=== PATIENT | male | born 1955 | race Caucasian/White ===

== ENCOUNTER 2017-01-18 22:10 | Emergency (ER) | payer MEDICAID ==
[~2017-01-18] VITALS: Ht 160 cm; Wt 72.0 kg
[2017-01-18 22:17] VITALS: BP 148/83
== END 2017-01-19 00:20 | disposition left against medical advice (07) ==
LOC: ER 22:10
DX: Z53.21 Procedure and treatment not carried out due to patient leaving prior to being seen by health care provider (principal)
CPT/HCPCS: A4565

== ENCOUNTER 2017-07-14 21:10 | Inpatient (IN) | payer SELFPAY ==
[~2017-07-14] VITALS: Ht 165.1 cm; Wt 73.4 kg
[2017-07-14] MEDS ORDERED: ENALAPRIL 2.5MG/2ML VIAL 2ML IV STA (23:01)
[2017-07-14] MEDS ORDERED: ASPIRIN 325MG TABLET PO ONE (23:15)
[2017-07-14 23:29] LABS: BASOPHILS % 0.9 % (0.0-2.0); EOSINOPHILS % 1.8 % (0.0-5.0); HEMATOCRIT. 39.5 % (42.0-52.0); HEMOGLOBIN. 13.9 g/dL (14.0-18.0); LYMPHOCYTES % 29.9 % (20.0-50.0); MEAN CORPUSCULAR HEMOGLOBIN 30.7 pg (28.0-32.0); MEAN CORPUSCULAR VOLUME 87.5 fL (80.0-94.0); MEAN PLATELET VOLUME 6.6 fl (7.4-10.4); MONOCYTES % 5.8 % (2.0-8.0); NEUTROPHILS % 61.6 % (40.0-76.0); PLATELET 381 x1000/uL (130-400); RED BLOOD CELL COUNT 4.52 mill/uL (4.7-6.1); RED CELL DISTRIBUTION WIDTH 12.6 % (11.6-14.6)
[2017-07-14 23:43] LABS: CARBON DIOXIDE 26 mEq/L (21-32); CHLORIDE 105 mEq/L (98-107); TROPONIN I < 0.02 ng/mL (0.00-0.04)
[2017-07-15 03:52] VITALS: BP 157/78
[2017-07-15 04:00] VITALS: BP 157/78
[2017-07-15 08:00] VITALS: BP 133/77
[2017-07-15] MEDS ORDERED: IPRATROPIUM/ALBUTEROL 0.5-3(2.5)MG/3ML NEB INH PRN (08:30)
[2017-07-15] MEDS ORDERED: HYDROCODONE/ACETAMINOPHEN 5/325MG TABLET PO PRN (08:30)
[2017-07-15] MEDS ORDERED: DOCUSATE SODIUM 100MG CAPSULE PO PRN (08:30)
[2017-07-15] MEDS ORDERED: ONDANSETRON HCL 4MG/2ML VIAL IV PRN (08:30)
[2017-07-15] MEDS ORDERED: ACETAMINOPHEN 325MG TABLET PO PRN (08:30)
[2017-07-15] MEDS ORDERED: CLONIDINE 0.1MG TABLET PO PRN (08:30)
[2017-07-15] MEDS ORDERED: AMLODIPINE 10MG TABLET PO SCH (09:00)
[2017-07-15] MEDS ORDERED: ASPIRIN 81MG EC TABLET PO SCH (09:00)
[2017-07-15] MEDS ORDERED: ASPIRIN 81MG TABLET PO SCH (09:00)
[2017-07-15] MEDS ORDERED: REGADENOSON 0.4 MG/5 ML IV NR (09:00)
[2017-07-15] MEDS ORDERED: LISINOPRIL 20MG TABLET PO SCH (09:00)
[2017-07-15] MEDS ORDERED: REGADENOSON 0.4 MG/5 ML IV ONE (09:46)
[2017-07-15 12:00] VITALS: BP 129/73
[2017-07-15 12:08] LABS: T4 FREE 0.89 ng/dL (0.76-1.46)
[2017-07-15 14:23] LABS: CREATINE KINASE 129 IU/L (39-308); CREATINE KINASE MB FRACTION 1.4 ng/mL (0.5-3.6); TROPONIN I < 0.02 ng/mL (0.00-0.04)
[2017-07-15 16:46] VITALS: BP 126/72
== END 2017-07-15 17:50 | disposition home or self-care (01) | DRG 203 ==
LOC: ER 21:10 → EDBEDREQTM 23:39 → EDBEDREQ 23:39 → 5WST 07-15 01:28 → EDBEDREQ 07-15 01:30 → ENRESERV 07-15 01:51
PROVIDERS: ADMIT Internal Medicine; ATTEND Internal Medicine
DX: R07.89 Other chest pain (principal); I10 Essential (primary) hypertension; E78.5 Hyperlipidemia, unspecified; D64.9 Anemia, unspecified
CPT/HCPCS: 36415; 71010; 78452; 80048; 82550; 82553; 83036; 83880; 84439; 84484; 85025; 85379; 93005; 93017; 96374; 99285; A9500; J2785; J3490

== ENCOUNTER 2017-07-24 09:51 | Emergency (ER) | payer SELFPAY ==
[~2017-07-24] VITALS: Ht 165.1 cm; Wt 82.0 kg
[2017-07-24 12:12] VITALS: BP 141/77
== END 2017-07-24 12:37 | disposition home or self-care (01) ==
LOC: ER 12:23
DX: I10 Essential (primary) hypertension (principal)
CPT/HCPCS: 99283; Z7610

== ENCOUNTER 2024-11-12 08:07 | Emergency (ER) | payer MEDICARE ==
[~2024-11-12] VITALS: Ht 160 cm; Wt 70.0 kg
[2024-11-12 08:16] VITALS: O2SAT 99
[2024-11-12 08:23] VITALS: TEMP 98.3; O2SAT 97
[2024-11-12 09:03] LABS: BASOPHILS % 0.7 % (0.0-2.0); EOSINOPHILS % 2.6 % (0.0-5.0); HEMATOCRIT. 41.8 % (42.0-52.0); HEMOGLOBIN. 14.5 g/dL (14.0-18.0); MEAN CORPUSCULAR HEMOGLOBIN 32.6 pg (28.0-32.0); MEAN CORPUSCULAR HGB CONC 34.6 g/dL (31.0-37.0); MEAN CORPUSCULAR VOLUME 94.2 fL (80.0-94.0); MEAN PLATELET VOLUME 6.9 fl (7.4-10.4); MONOCYTES % 5.7 % (2.0-8.0); PLATELET 315 x1000/uL (130-400); RED BLOOD CELL COUNT 4.43 mill/uL (4.7-6.1); RED CELL DISTRIBUTION WIDTH 12.6 % (11.6-14.6); WHITE BLOOD COUNT 4.8 x1000/uL (4.5-11.0)
[2024-11-12 09:20] LABS: CARBON DIOXIDE 24 mEq/L (21-32); CHLORIDE 107 mEq/L (98-107); POTASSIUM 4.1 mEq/L (3.5-5.1); SODIUM 139 mEq/L (136-145)
[2024-11-12 09:21] LABS: CALCIUM 9.5 mg/dL (8.7-10.4)
[2024-11-12 09:25] LABS: CREATININE 0.7 mg/dL (0.6-1.3)
[2024-11-12 09:26] LABS: GLUCOSE 112 mg/dL (70-105); UREA NITROGEN BLOOD 13 mg/dL (9-23)
[2024-11-12 09:28] LABS: TROPONIN I HIGH SENSITIVITY 4 ng/L (3.0-53)
[2024-11-12] MEDS ORDERED: IBUP-2029 MT (09:42)
[2024-11-12 10:07] VITALS: BP 132/102; PULSE 70; RESP 16
[2024-11-12] MEDS: KETOROLAC 30MG/ML VIAL IM ONE (10:07)
== END 2024-11-12 10:07 | disposition home or self-care (01) ==
LOC: ER 08:07
DX: M89.8X1 Other specified disorders of bone, shoulder (principal)
CPT/HCPCS: 99284; 71045; 80048; 85025; 84484; 36415; 96372; J1885